=== PATIENT | male | born 1980 ===

== ENCOUNTER 2017-06-04 16:07 | Emergency (ER) | payer OTHER ==
[2017-06-04 16:47] VITALS: RESP 18; TEMP 98.7; O2SAT 100
[2017-06-04] MEDS ORDERED: Lidocaine 2% w Epi 1:100,000 Inj IJ ONE ×2 (17:49→17:54)
[2017-06-04] MEDS ORDERED: Bacitracin 500 Units/gm Oint Foilpak UD ONE (18:18)
[2017-06-04] MEDS ORDERED: Bacitracin Ointment 30 GM TUBE TOP STA (18:29)
--- NOTE | 2017-06-04 18:36 | C.PDOC ---
History Of Present Illness Pt states he accidentally cut his right wrist while at work with a piece of metal. Time Seen by Provider: 06/04/17 17:28 Chief Complaint (Nursing): Abnormal Skin Integrity History Per: Patient Onset/Duration Of Symptoms: Hrs (today), Laceration Current Symptoms Are (Timing): Still Present Location Of Injury: Right: Wrist ([place]ors[place]) Severity: Moderate Additional History Per: Prior Records Past Medical History Reviewed: Historical Data, Nursing Documentation, Vital Signs Vital Signs: Last Vital Signs Temp 98.7 F 06/04/17 16:43 Pulse 81 06/04/17 16:43 Resp 18 06/04/17 16:43 BP 148/83 06/04/17 16:43 Pulse Ox 100 06/04/17 16:43 - Medical History PMH: No Chronic Diseases Family History: States: Unknown Family Hx - Social History Hx Alcohol Use: No Hx Substance Use: No - Immunization History Hx Tetanus Toxoid Vaccination: No Hx Influenza Vaccination: Yes Hx Pneumococcal Vaccination: No Review Of Systems Except As Marked, All Systems Reviewed And Found Negative. Constitutional: Negative for: Fever, Weakness Cardiovascular: Negative for: Chest Pain Respiratory: Negative for: Shortness of Breath Gastrointestinal: Negative for: Vomiting, Abdominal Pain Musculoskeletal: Negative for: Neck Pain, Hand Pain Neurological: Negative for: Weakness, Numbness Physical Exam - Physical Exam Appears: Non-toxic, No Acute Distress Skin: Normal Color, Warm, Dry, No Rash Head: Atraumatic, Normacephalic Eye(s): bilateral: Normal Inspection, PERRL, EOMI Neck: Normal ROM, Supple Extremity: Normal ROM, No Tenderness, Capillary Refill (wnl), No Deformity, Other (Laceration on dorsum of right wrist. No active bleeding.) Pulses: Right Radial: Normal Neurological/Psych: Oriented x3, Normal Motor, Normal Sensation ED Course And Treatment O2 Sat by Pulse Oximetry: 100 Pulse Ox Interpretation: Normal Laceration - Laceration Repair Right wrist Wound Length (In cm): 5 Description Of Wound: Linear, Clean Wound Cleansed With: Betadine Anesthesia: Lidocaine 2%, With Epi Wound Examination: Irrigated With Saline, No FB With Wound Exploration, No Tendon Injury With Wound Exploration Wound Closure: Suture Suture Technique And Material Used: Interrupted, Nylon Wound Complexity: Simple Disposition Counseled Patient/Family Regarding: Diagnosis, Need For Followup - Disposition Disposition: HOME/ ROUTINE Disposition Time: 18:37 Condition: IMPROVED Additional Instructions: Keep your wound clean and dry. Suture removal in 10-14 days. Follow up with your doctor in 2-3 days for a wound check. Return to the ER if you develop if you develop fever, redness, swelling, pus drainage, worsening of symptoms or if you have any other concerns. Instructions: Laceration (ED) Forms: [facility] (Chinese), Work Excuse - Clinical Impression Clinical Impression: Laceration of wrist, right
[2017-06-04 18:44] VITALS: BP 120/70; PULSE 80
== END 2017-06-04 18:44 | disposition home or self-care (01) ==
LOC: C.ER 16:07
DX: S61.511A Laceration without foreign body of right wrist, initial encounter (principal); W45.8XXA Other foreign body or object entering through skin, initial encounter; Y92.89 Other specified places as the place of occurrence of the external cause; Y99.0 Civilian activity done for income or pay; Z23 Encounter for immunization